=== PATIENT | male | born 1960 | race Caucasian/White ===

== ENCOUNTER → 2020-02-16 15:42 | Outpatient (CLI) | payer OTHER, SELFPAY ==
[2020-02-16 12:05] VITALS: BMI 29.9
== END ==
PROVIDERS: PCP Family Medicine; Visit Provider Physician Assistant Surgical
DX: R05 Cough (principal); R51.9 Headache, unspecified
CPT/HCPCS: 87635; U0003

== ENCOUNTER 2021-08-11 09:08 | Day surgery (SDC) | payer OTHER, SELFPAY ==
[2021-08-11 09:52] VITALS: BP 134/75; PULSE 72; RESP 16; TEMP 36.4; O2SAT 98; BMI 28.4
[2021-08-11] MEDS: Lactated Ringers 1,000 ML 15 ML IV (09:57)
[2021-08-11 10:00] LABS: Bedside Glucose 101 mg/dL (74-106)
--- NOTE | 2021-08-11 10:15 | COLBX_PTH ---
PATIENT: STANLEY BERGMAN LOC: EN U#:[id number] AGE/SX: 61/M ROOM: RE08/11/[address]: Dr. Antelmo Pulliam MD : 1960 BED: DIS: 08/11/2021 SPEC #: [id number] RECD: 08/11/21 12:36 STATUS: ROBERT ELKINS #: [id number] DESEAN: 08/11/21 10:[address]: Antelmo Pulliam DEPT: SURGICAL PATHOLOGY RECD BY: Elizabeth Wood ENTERED: 08/11/21 13:11 SP TYPE: COLON BX OTHR DR: Dr. Madhu Mustafa MD Tissues: Sigmoid colon biopsy Procedures: Surgery Specimen Level IV HEADER OPERATION: Colonoscopy ? open access (MAC) PRE-OP DIAGNOSIS: Screening for malignant neoplasm of colon TISSUE SUBMITTED: Sigmoid colon polyp MICROSCOPIC DIAGNOSIS Sigmoid colon polyp, biopsy: Tubular adenoma. AM:marielena 08/14/2021 MICROSCOPIC DESCRIPTION Slides are reviewed. GROSS DESCRIPTION Received in fixative is one container labeled with the patient's name and designated sigmoid colon polyp. The specimen consists of one irregular fragment of light irby soft tissue that measures 0.5 x 0.5 x 0.2 cm. The specimen is totally submitted in one cassette. / AM:marielena 08/11/2021 TC:5 CPT: 75819
--- NOTE | 2021-08-11 10:32 | HP.PCM_ITS ---
HPI - General HPI Narrative STANLEY BERGMAN, is a 61 M who presents for screening colonoscopy. His last colonoscopy was 10 years ago and was normal. Patient denies any abdominal pain or blood in the stool or family history of colon cancer. [facility] Medical History (Updated 08/10/21 @ 08:28 by Clarice Blanco) Alcohol use Dietary restriction Former smoker High cholesterol Insulin dependent diabetes mellitus Wears glasses Home Medications atorvastatin 20 mg tablet 20 mg PO DAILY 06/28/21 [History Last Taken Unknown] dulaglutide 3 mg/0.5 mL subcutaneous pen injector 3 mg SUBCUT QWEEK 06/28/21 [History Last Taken Unknown] empagliflozin 10 mg tablet 10 mg PO DAILY 06/28/21 [History Last Taken Unknown] insulin glargine 100 unit/mL subcutaneous cartridge 37 unit SUBCUT BID 06/28/21 [History Last Taken Unknown] lisinopril 20 mg tablet 20 mg PO DAILY 06/28/21 [History Last Taken Unknown] metformin 1,000 mg tablet 1,000 mg PO BID 06/28/21 [History Last Taken Unknown] Allergy/AdvReac Type Severity Reaction Status Date / Time Penicillins Allergy Unknown PT UNSURE Verified 08/11/21 09:46 OF REACTION Sulfa (Sulfonamide Allergy Unknown PT UNSURE Verified 08/11/21 09:46 Antibiotics) OF REACTION Social History Smoking Status: Former smoker Past Medical/Surgical History Planned Operation Planned Operative Procedure/s: COLONOSCOPY Previous Hospitalizations/Surgeries HX Hospitalizations: No Any Problems With Anesthesia: No You/Your Family Experience Fever (Hyperthermia) With Anes: No Cholinesterase deficiency: No Cardiovascular Hx Hypertension: No (ON MED FOR DIABETES) Respiratory Hx Chronic Obstructive Pulmonary Disease (COPD): No Hx Asthma: No Hx Sleep Apnea: No CPAP: No BIPAP: No Hx Respiratory Tract Infection/Cold (presently): No Do You Snore Loudly (louder than talking or can be heard): Yes Do You Often Feel Tired/ Fatigued/ Sleepy Dring Daytime?: No Has Anyone Observed You Stop Breathing During Sleep?: No Result (for STOP score): Negative Smoking Status: Former smoker Neurological Does patient have nerve stimulator: No Miscellaneous Recent Exposure to Contagious Disease: No Allergies Penicillins Allergy (Unknown, Verified 08/11/21 09:46) PT UNSURE OF REACTION Sulfa (Sulfonamide Antibiotics) Allergy (Unknown, Verified 08/11/21 09:46) PT UNSURE OF REACTION Discharge Is Pt Admitted From a Correction, or a Residential: No After D/C, Where Do you Plan to Go: Return Home Vital Signs Vital Signs Vital Signs: 08/11/21 09:52 Temperature 97.6 F L Temperature Source Temporal Pulse Rate 72 Respiratory Rate 16 Respiratory Pattern Normal Blood Pressure 134/75 H Blood Pressure Mean 94 Blood Pressure Source Monitor Blood Pressure Position Semi-Fowlers Blood Pressure Location Left Arm Pulse Ox 98 Oxygen Delivery Method Room Air Weight Weight: 187 lb Body Mass Index (BMI) 28.4 Physical Exam Const alert and oriented x3 Resp normal respiratory effort and normal air movement Cardio regular rate and regular rhythm GI soft to palpation, non-tender and non-distended Assessment & Plan Assessment/Plan (1) Encounter for screening for malignant neoplasm of colon: PLAN: I explained endoscopy in detail to the patient. I explained the risks including but not limited to stroke or heart attack with anesthesia, perforation of the GI tract, bleeding, infection. I explained that any of these could necessitate further emergency surgery. The patient understands and all questions were answered sufficiently. The patient wishes to proceed with procedure. Antelmo Pulliam MD Pager: [facility] [address] [place] [address], [address] [place] [address] Office: Surgery Risks - Colonoscopy Risks Include but are not Limited To: Risks include but are not limited to: Bleeding, perforation requiring further surgery, inability to complete colonoscopy requiring barium enema.
--- NOTE | 2021-08-11 11:04 | OP.COLON_ITS ---
Patient Name: Lalo Young Procedure Date: 08/11/2021 10:41 AM Date of : 1960 Age: 61 Procedure: Colonoscopy Indications: Screening for colorectal malignant neoplasm Providers: Antelmo Pulliam MD Medicines: Monitored Anesthesia Care Patient Profile: This is a 61 year old male. Refer to note in patient chart for documentation of history and physical. Last Colonoscopy: 10 years ago. Complications: No immediate complications. Procedure: Pre-Anesthesia Assessment: - Prior to the procedure, a History and Physical was performed, and patient medications and allergies were reviewed. The patient's tolerance of previous anesthesia was also reviewed. The risks and benefits of the procedure and the sedation options and risks were discussed with the patient. All questions were answered, and informed consent was obtained. Prior Anticoagulants: The patient has taken no previous anticoagulant or antiplatelet agents. After reviewing the risks and benefits, the patient was deemed in satisfactory condition to undergo the procedure. After I obtained informed consent, the scope was passed under direct vision. Throughout the procedure, the patient's blood pressure, pulse, and oxygen saturations were monitored continuously. The pediatric colonoscope was introduced through the anus and advanced to the cecum, identified by appendiceal orifice and ileocecal valve. The colonoscopy was performed without difficulty. The patient tolerated the procedure well. The quality of the bowel preparation was good. Scope In: 10:49:11 AM Scope Withdrawal Time 0 hours 6 minutes 34 seconds Scope Out: 11:01:42 AM Total Procedure Duration Time 0 hours 12 minutes 31 seconds Findings: A small polyp was found in the proximal sigmoid colon. The polyp was removed with a hot snare. Resection and retrieval were complete. The exam was otherwise without abnormality on direct and retroflexion views. Impression: - One small polyp in the proximal sigmoid colon, removed with a hot snare. Resected and retrieved. - The examination was otherwise normal on direct and retroflexion views. Recommendation: - Discharge patient to home. - Resume previous diet. - Continue present medications. - Await pathology results. - Repeat colonoscopy in 5 years for surveillance based on pathology results. Procedure Code(s): --- Professional --- 89222, 33, Colonoscopy, flexible; with removal of tumor(s), polyp(s), or other lesion(s) by snare technique Diagnosis Code(s): --- Professional --- Z12.11, Encounter for screening for malignant neoplasm of colon D12.5, Benign neoplasm of sigmoid colon CPT copyright 2017 [employer]. All rights reserved. The codes documented in this report are preliminary and upon forest technician review may be revised to meet current compliance requirements. Antelmo Pulliam MD 08/11/2021 11:04:05 AM This report has been signed electronically. Number of Addenda: 0 Note Initiated On: 08/11/2021 10:41 AM
[2021-08-11 11:10] VITALS: BP 102/53; BP 134/75; PULSE 69; RESP 16; TEMP 36.4; O2SAT 96
[2021-08-11 11:15] VITALS: BP 103/56; BP 134/75; PULSE 70; RESP 16; O2SAT 95
[2021-08-11 11:20] VITALS: BP 114/63; BP 134/75; PULSE 69; RESP 16; O2SAT 96
[2021-08-11 11:25] VITALS: BP 107/55; BP 134/75; PULSE 68; RESP 16; TEMP 36.2; O2SAT 100
[2021-08-11 11:36] VITALS: BP 134/75
== END 2021-08-11 12:26 | disposition home or self-care (01) ==
LOC: EN 09:11 → AC 09:12
PROVIDERS: PCP Family Medicine; Referring Provider Family Medicine; Visit Provider Surgery
PROC: 0DJD8ZZ Inspection of Lower Intestinal Tract, Via Natural or Artificial Opening Endoscopic (ICD-10-PCS; CPT 45378; principal; 2021-08-11 10:10)
DX: Z12.11 Encounter for screening for malignant neoplasm of colon (principal); E11.9 Type 2 diabetes mellitus without complications; Z79.4 Long term (current) use of insulin; D12.5 Benign neoplasm of sigmoid colon; E78.00 Pure hypercholesterolemia, unspecified; Z87.891 Personal history of nicotine dependence; Z79.899 Other long term (current) drug therapy; Z79.84 Long term (current) use of oral hypoglycemic drugs
CPT/HCPCS: 45385; 82962; 88305; J7120